=== PATIENT | male | born 2000 | race American Indian/Alaskan Native ===

== ENCOUNTER 2024-09-08 20:33 | Emergency (ER) | payer BC, SELFPAY ==
[2024-09-08 20:36] VITALS: BMI 24.4
[2024-09-08 21:42] VITALS: BP 155/99; PULSE 92; RESP 19; TEMP 36.9; O2SAT 99
--- NOTE | 2024-09-08 22:18 | EKG_ITS ---
[facility] Test Date: 2024-09-08 Pat Name: GLORIA CARRILLO Department: Room: - Gender: Male Security Clerk: : 2000 Requested By: ED Temporary Provider Order Number: [id number] Reading MD: ED Temporary Provider Measurements Intervals [place] Rate: 88 P: 41 WV: 178 QRS: 53 QRSD: 102 T: 52 QT: 330 QTc: 401 Interpretive Statements SINUS RHYTHM NONSPECIFIC ST & T-WAVE ABNORMALITY No previous ECG available for comparison /[id number]/S0/[id number].pdf
--- NOTE | 2024-09-08 22:32 | XR_ITS ---
Examination: Shoulder,left, 3 views Technique: Shoulder AP internal rotation, AP external rotation, Y view shoulder, 3 views Exam date and time : September 08, 2024 1036 hours INDICATIONS: Patient fell one week ago with into the shoulder, shoulder pain. FINDINGS: No shoulder fracture or dislocation. No foreign body IMPRESSION: No shoulder fracture or dislocation
--- NOTE | 2024-09-08 22:32 | XR_ITS ---
Examination: PA and lateral chest 2 views TECHNIQUE: Upright PA lateral chest 2 views Date and time: September 08, 2024, 10:39 PM INDICATIONS: Patient fell one week ago with chest and back pain FINDINGS: Normal heart size No pneumothorax. Clavicles, ribs and thoracic vertebral bodies intact IMPRESSION: No pneumothorax pulmonary contusion or hemothorax
--- NOTE | 2024-09-09 00:07 | EDNOTE_ITS ---
ED Back Injury Pain RME/HPI General Chief Complaint: Back Pain/Injury Stated Complaint: LEFT UPPER BACK PAIN Arrival date/time: 09/08/24 20:33 RME / HPI RME / HPI Narrative: DR. GRIFFITHS MAIN ED EVALUATION: 24 y/o male presents to ED for left upper back pain s/p trip and fall x 1 week ago. Denies any otgher recent injury or trauma. No other concerns or complaints expressed at this time. Related Data Previous Rx's ?Medication ?Instructions ?Recorded naproxen 500 mg tablet (Naprosyn) 500 mg PO BID PRN pa in #30 tabs 09/09/24 Allergies Allergy/AdvReac Type Severity Reaction Status Date / Time No Known Allergies Allergy Verified 09/08/24 22:19 Review of Systems Review of Systems Systems Reviewed: All systems reviewed, normal except as documented Past Medical History Social History SMOKING STATUS: Current every day smoker ED Exam Narrative Physical exam: Generally patient is sleeping but arousable and in no obvious distress, heart is regular rate and rhythm lungs are auscultation equal bilaterally abdomen soft bowel sounds nondistended nontender musculoskeletal exam showed patient have ten derness to the rhomboid musculature on the left side. No crepitance or subcu air. Anterior chest wall is nontender. Left shoulder shows no deformity is able to flex and extend with minimal pain. Course Course Course Narrative: CXR is ordered for determining the etiology of shortness of breath. Quality Measures none Orders Category Date Time Status EKG (ED ONLY) *Do not use* NOW Care 09/08/24 22:18 Completed EKG (ED Only) Stat Exams 09/08/24 22:18 Draft XR chest 2V Stat Exams 09/08/24 22:32 Completed XR shoulder LT min 2V Stat Exams 09/08/24 22:32 Completed Vital Signs Vital signs: Vital Signs Temperature 98.4 F 09/08/24 21:42 Pulse Rate 92 09/08/24 21:42 Respiratory Rate 19 09/08/24 21:42 Blood Pressure 155/99 H 09/08/24 21:42 Pulse Oximetry (%) 99 09/08/24 21:42 Oxygen Delivery Method Room Air 09/08/24 21:42 Back Pain / Injury MDM Narrative MDM Narrative:: Scribe Attestation: Carole Basilio am scribing for and in the presence of Dr. Griffiths. Provider Notation: Although this document has been carefully reviewed, there may still be some phonetic and other typographical errors.? These errors are purely grammatical due to imperfections in the software program and should not be construed in any way to? compromise the substance of the patient's medical care during this visit. X-ray of the left shoulder and chest showed no acute abnormality. Patient has musculoskeletal pain. Patient be discharged in stable condition. Patient data External records reviewed:: [facility] previous records (No prior ED records available for review.) Clinical information provided by:: patient Social determinants that could affect healthcare access:: none Patient has the following chronic illnesses:: None reported. How is presenting disease/condition affected by chronic disease/condition?: no chronic disease Evaluation data The following diagnostics were reviewed and interpreted by me:: radiology exam(s) and EKG tracing(s) Lab and/or radiology exams considered but not ordered:: None Interpretation Summary: RADIOLOGY Left Shoulder X-Ray: FINDINGS: No shoulder fracture or dislocation. No foreign body IMPRESSION: No shoulder fracture or dislocation Chest X-Ray: FINDINGS: Normal heart size No pneumothorax. Clavicles, ribs and thoracic vertebral bodies intact IMPRESSION: No pneumothorax pulmonary contusion or hemothorax Medications / Prescriptions Medications or Prescriptions considered but not ordered:: None Medication administrations:: See above. Consultations Consultation(s) initiated? (list below): No Diagnosis Differential diagnosis back pain/injury: thoracic back pain, discitis and other (Fracture) Most likely diagnosis given after review of the tests above:: None Admission Indicated Admission indicated?: not indicated Explain why admission is indicated or not indicated:: Patient does not meet admission criteria. Admission Request Was there a request for admission?: No Disposition Plan Disposition Plan: Discharge Discharge Attestation Discharge Attestation: The patient and all family members were given an opportunity to ask questions and understood the discharge instructions. Discharge instructions specifically effects, indications for sooner follow up or return to the emergency department, and the expected course of current diagnosis. Patient condition: Stable Discharge Plan Plan Patient Disposition: HOME (Self Care) Prescriptions/Referrals Prescriptions/Med Rec: New naproxen [Naprosyn] 500 mg tablet 500 mg PO BID PRN (Reason: pain) Qty: 30 0RF Referrals: No Primary/Family,Physician [Primary Care Provider] - In 1 week Problem List Clinical Impression: Musculoskeletal pain Patient/Caregiver Discharge Instructions Additional Instructions: Naprosyn as prescribed. Follow-up with your doctor as needed for further treatment and evaluation. Print Language: Kazakh Stand Alone Forms: Janie Award Info., Patient Portal Info Letter
[2024-09-09 00:18] VITALS: BP 149/97; PULSE 75; RESP 19; TEMP 37.2; O2SAT 99
[2024-09-09 01:41] VITALS: BP 122/86; PULSE 73; RESP 16; TEMP 36.7; O2SAT 97
== END 2024-09-09 02:22 | disposition home or self-care (01) ==
PROVIDERS: Emergency Provider Emergency Medicine
DX: M79.18 Myalgia, other site (principal); M54.6 Pain in thoracic spine; M25.512 Pain in left shoulder; R06.02 Shortness of breath; R94.31 Abnormal electrocardiogram [ECG] [EKG]; F17.290 Nicotine dependence, other tobacco product, uncomplicated; W01.0XXA Fall on same level from slipping, tripping and stumbling without subsequent striking against object, initial encounter
CPT/HCPCS: 71046; 73030; 93005; 99283